=== PATIENT | female | born 1960 | race Caucasian/White ===

== ENCOUNTER 2018-05-31 09:03 | Day surgery (SDC) | payer MEDICAID ==
[~2018-05-31] VITALS: Ht 162.6 cm; Wt 122.5 kg
[~2018-05-31 09:03] MED LIST: CHOL20004 PO; GLIP10TA10 PO; INSU100I24 SQ; LEVO25TA7 PO; MAGN400C PO; METF-815 PO; OMEP40CA34 PO; VALS1TAB2 PO; VITA1CAP PO; VITA400C73 PO; XALAO EACHEYE
[2018-05-31 10:25] LABS: BASOPHILS % 0.5 % (0.0-2.0); EOSINOPHILS % 2.7 % (0.0-5.0); HEMOGLOBIN. 13.9 g/dL (12.0-16.0); MEAN CORPUSCULAR VOLUME 88.2 fL (81.0-99.0); NEUTROPHILS % 48.8 % (40.0-76.0); PLATELET 70 x1000/uL (130-400); RED BLOOD CELL COUNT 4.65 mill/uL (4.2-5.4); RED CELL DISTRIBUTION WIDTH 14.4 % (11.6-14.6)
[2018-05-31 10:31] LABS: CHLORIDE 104 mEq/L (98-107)
[2018-05-31 10:32] LABS: INR 1.2; PARTIAL THROMBOPLASTIN TIME 28.7 sec (23.4-31.0); PROTHROMBIN TIME 11.8 sec (9.1-11.1)
[2018-05-31] MEDS ORDERED: SIMETHICONE 40 MG/0.6 ML 30ML ONE (10:47)
[2018-05-31] MEDS ORDERED: MIDAZOLAM HCL 2 MG/2 ML VIAL ONE (11:57)
[2018-05-31] MEDS ORDERED: FENTANYL CITRATE/PF 50MCG/ML 2ML VIAL ONE (11:57)
[2018-05-31] MEDS ORDERED: PROPOFOL 200MG/20ML VIAL IV ONE ×2 (11:57→12:13)
== END 2018-05-31 13:15 | disposition home or self-care (01) ==
LOC: OR 09:03
PROVIDERS: ATTEND Internal Medicine Gastroenterology
DX: I85.01 Esophageal varices with bleeding (principal); E11.39 Type 2 diabetes mellitus with other diabetic ophthalmic complication; H42 Glaucoma in diseases classified elsewhere; E03.9 Hypothyroidism, unspecified; I10 Essential (primary) hypertension; K21.9 Gastro-esophageal reflux disease without esophagitis
CPT/HCPCS: 36415; 43244; 80048; 82962; 85025; 85610; 85730; 93005; J2250; J2704; J3010